=== PATIENT | female | born 1975 | race Caucasian/White ===

== ENCOUNTER 2018-06-26 17:36 | Emergency (ER) | payer OTHER ==
[2018-06-26 18:37] LABS: URINE BLOOD (Dip) POC Negative (NEGATIVE); URINE GLUCOSE (Dip) POC Negative (NEGATIVE); URINE KETONES (Dip) POC Negative (NEGATIVE); URINE LEUKOCYTE EST (Dip) POC Negative (NEGATIVE); URINE NITRITE (Dip) POC Negative (NEGATIVE); URINE TOTAL PROTEIN POC Negative (NEGATIVE)
[2018-06-26] MEDS: KETOROLAC 30 MG INJ IV (18:46)
[2018-06-26 18:48] LABS: ADD MAN DIFF? NO
[2018-06-26 18:50] LABS: BASOPHILS % 0.3 % (0.0-2.0); EOSINOPHILS % 0.3 % (0.0-7.0); HEMOGLOBIN 13.5 g/dl (12.0-16.0); LYMPHOCYTES # 3.3 10^3/ul (0.8-2.9); LYMPHOCYTES % 33.1 % (15.0-51.0); MEAN CORPUSCULAR HEMOGLOBIN 30.1 pg (29.0-33.0); MEAN CORPUSCULAR HGB CONC 33.8 g/dl (32.0-37.0); MEAN CORPUSCULAR VOLUME 89.3 fl (82.0-101.0); MEAN PLATELET VOLUME 9.7 fl (7.4-10.4); MONOCYTE # 0.7 10^3/ul (0.3-0.9); MONOCYTES % 6.6 % (0.0-11.0); NEUTROPHILS % 59.3 % (39.0-77.0); PLATELET COUNT 248 10^3/UL (140-415); RED BLOOD COUNT 4.48 10^6/ul (4.20-5.40); RED CELL DISTRIBUTION WIDTH 12.8 % (11.5-14.5)
[2018-06-26 18:50] LABS: WHITE BLOOD COUNT 10.1 10^3/ul (4.8-10.8)
== END 2018-06-26 19:11 | disposition home or self-care (01) ==
LOC: FTE 17:36
DX: R22.0 Localized swelling, mass and lump, head (principal); Z98.818 Other dental procedure status
CPT/HCPCS: 81003; 81025; 85025; 96374; 99284-25

== ENCOUNTER 2018-08-07 21:34 | Emergency (ER) | payer SELFPAY, OTHER | END 2018-08-07 22:27 | disposition left against medical advice (07) | LOC: FTE 22:27 | DX: Z53.21 Procedure and treatment not carried out due to patient leaving prior to being seen by health care provider (principal) ==

== ENCOUNTER 2018-12-01 20:02 | Emergency (ER) | payer OTHER ==
[2018-12-02 00:58] LABS: ADD MAN DIFF? NO
[2018-12-02 00:59] LABS: BASOPHILS % 0.4 % (0.0-2.0); EOSINOPHILS % 0.4 % (0.0-7.0); HEMATOCRIT 40.4 % (37.0-47.0); HEMOGLOBIN 13.7 g/dl (12.0-16.0); LYMPHOCYTES # 2.9 10^3/ul (0.8-2.9); LYMPHOCYTES % 30.7 % (15.0-51.0); MEAN CORPUSCULAR HEMOGLOBIN 29.1 pg (29.0-33.0); MEAN CORPUSCULAR HGB CONC 33.9 g/dl (32.0-37.0); MEAN PLATELET VOLUME 9.6 fl (7.4-10.4); MONOCYTE # 0.6 10^3/ul (0.3-0.9); MONOCYTES % 6.4 % (0.0-11.0); NEUTROPHIL # 5.8 10^3/ul (1.6-7.5); NEUTROPHILS % 61.7 % (39.0-77.0); PLATELET COUNT 268 10^3/UL (140-415); RED CELL DISTRIBUTION WIDTH 12.2 % (11.5-14.5)
[2018-12-02 00:59] LABS: WHITE BLOOD COUNT 9.4 10^3/ul (4.8-10.8)
== END 2018-12-02 01:17 | disposition home or self-care (01) ==
LOC: FTE 20:02
DX: R21 Rash and other nonspecific skin eruption (principal); Z85.6 Personal history of leukemia
CPT/HCPCS: 36415; 85025; 99283